=== PATIENT | female | born 1965 | race Caucasian/White ===

== ENCOUNTER → 2020-04-27 09:36 | Outpatient (BNVA) | payer BC, SELFPAY | PROVIDERS: Family Provider Family Medicine; PCP Family Medicine; Visit Provider Family Medicine | DX: F98.8 Other specified behavioral and emotional disorders with onset usually occurring in childhood and adolescence (principal); J45.909 Unspecified asthma, uncomplicated; Z51.81 Encounter for therapeutic drug level monitoring; Z86.39 Personal history of other endocrine, nutritional and metabolic disease; Z13.6 Encounter for screening for cardiovascular disorders; Z13.220 Encounter for screening for lipoid disorders; Z13.1 Encounter for screening for diabetes mellitus | CPT/HCPCS: 80053; 80307; 83690; 84443 ==

== ENCOUNTER → 2020-09-12 13:49 | Outpatient (BNVA) | payer BC, SELFPAY | PROVIDERS: Family Provider Family Medicine; PCP Family Medicine; Visit Provider Psychiatry & Neurology Psychiatry | DX: F33.2 Major depressive disorder, recurrent severe without psychotic features (principal); F17.200 Nicotine dependence, unspecified, uncomplicated; F41.1 Generalized anxiety disorder | CPT/HCPCS: 99204 ==

== ENCOUNTER → 2021-01-18 10:25 | Outpatient (BNVA) | payer BC, SELFPAY | PROVIDERS: Family Provider Family Medicine; Visit Provider Nurse Practitioner Family | DX: S61.452A Open bite of left hand, initial encounter (principal); L08.9 Local infection of the skin and subcutaneous tissue, unspecified; W55.01XA Bitten by cat, initial encounter | CPT/HCPCS: 73130 ==

== ENCOUNTER → 2022-07-16 08:03 | Outpatient (BNVA) | payer BC, SELFPAY | PROVIDERS: Family Provider Family Medicine; Visit Provider Podiatrist Foot & Ankle Surgery | DX: M77.42 Metatarsalgia, left foot (principal); M24.572 Contracture, left ankle; M24.571 Contracture, right ankle; M20.11 Hallux valgus (acquired), right foot | CPT/HCPCS: 73630 ==

== ENCOUNTER 2022-08-30 09:06 | Outpatient (CLI) | payer OTHER, SELFPAY ==
--- NOTE | 2022-08-30 09:21 | XR_ITS ---
WS: [id number] Exam: XR foot LT 2V [id number] Date/Time of Exam: 08/30/2022 9:21 AM Reason For Exam: METATARSAL FX Comparison 07/16/2022. No fracture or dislocation noted. Articular relationships appear normal. No soft tissue foreign arthur s. Minimal degenerative change in the IP joints. XR/XR foot LT 2V [id number] IMPRESSION: 1. No fracture or other significant finding.
== END 2022-08-30 09:07 | disposition home or self-care (01) ==
LOC: RAD 09:13
PROVIDERS: Visit Provider Chiropractor
DX: S92.313A Displaced fracture of first metatarsal bone, unspecified foot, initial encounter for closed fracture (principal); X58.XXXA Exposure to other specified factors, initial encounter
CPT/HCPCS: 73620